=== PATIENT | female | born 1990 | race Two or more races ===

== ENCOUNTER 2024-09-11 14:15 | Inpatient (IN) | payer OTHER ==
[~2024-09-11] VITALS: Ht 162.6 cm; Wt 66.7 kg
[2024-09-13 16:30] VITALS: BP 114/62
[2024-09-13] MEDS ORDERED: RINGERS SOLUTION,LACTATED 1,000 ML IV SCH (18:00)
[2024-09-13 18:21] LABS: HEMATOCRIT 38.2 % (36.0-45.00); HEMOGLOBIN 12.9 g/dL (12.0-15.00); MEAN CELL VOLUME 93.6 fL (80.00-100.00); MEAN CORPUSCULAR HEMOGLOBIN 31.6 pg (27.00-32.0); MEAN CORPUSCULAR HGB CONC 33.8 g/dl (32.0-36.0); PLATELET COUNT 195 K/uL (150-450); RED BLOOD COUNT 4.08 M/uL (4.00-6.00); RED CELL DISTRIBUTION WIDTH 13.7 % (11.5-14.5)
[2024-09-13 18:41] LABS: INR < 0.93; PARTIAL THROMBOPLASTIN TIME 28.2 SECONDS (22.0-34.0); PROTHROMBIN TIME 9.9 SECONDS (9.0-11.5)
[2024-09-13 18:45] LABS: ALBUMIN 3.1 gm/dL (3.4-5.0); BILIRUBIN TOTAL 0.49 mg/dL (0.3-1.2); CALCIUM 9.2 mg/dL (8.5-10.1); CREATININE SERUM 0.63 mg/dL (0.55-1.02); GFR 106.92; GLOBULINA 3.5 G/DL (2.4-3.5); POTASSIUM 4.14 mEq/L (3.5-5.1); TOTAL PROTEIN 6.6 gm/dL (6.4-8.2)
[2024-09-13] MEDS ORDERED: ERYTHROMYCIN BASE OPHT 1GM EACH TUBE OP ONE (19:42)
[2024-09-13] MEDS ORDERED: CHLORHEXIDINE GLUCONATE 120 ML BOTTLE TOP ONE (19:42)
[2024-09-13] MEDS ORDERED: OXYTOCIN 20 UNITS/1000ML RL PIGGYBAG IV ONE (19:42)
[2024-09-13] MEDS ORDERED: LIDOCAINE HCL 1% 10ML VIAL ONE (19:43)
[2024-09-13 23:20] VITALS: BP 128/69
[2024-09-13] MEDS ORDERED: KETOROLAC TROMETHAMINE 30 MG VIAL IV ONE (23:45)
[2024-09-13] MEDS ORDERED: IBUprofen 400 MG TABLET PO PRN (23:45)
[2024-09-13] MEDS ORDERED: OXYTOCIN 1,000 ML IV SCH (23:45)
[2024-09-13] MEDS ORDERED: CHLORHEXIDINE GLUCONATE 120 ML BOTTLE TP SCH (23:45)
[2024-09-14] VITALS (7 sets, daily range): BP systolic 92–121; BP diastolic 56–76; O2SAT 100
[2024-09-14 12:36] LABS: HEMATOCRIT 27.1 % (36.0-45.00); HEMOGLOBIN 9.3 g/dL (12.0-15.00); MEAN CELL VOLUME 93.7 fL (80.00-100.00); MEAN CORPUSCULAR HEMOGLOBIN 32.1 pg (27.00-32.0); MEAN CORPUSCULAR HGB CONC 34.3 g/dl (32.0-36.0); PLATELET COUNT 175 K/uL (150-450); RED BLOOD COUNT 2.89 M/uL (4.00-6.00); RED CELL DISTRIBUTION WIDTH 13.8 % (11.5-14.5)
[2024-09-14] MEDS ORDERED: IRON FUM,PS/FOLIC/BCOMP,C NO.9 1 CAP CAPSULE PO SCH (17:00)
[2024-09-15 00:10] VITALS: BP 87/61
[2024-09-15 04:00] VITALS: BP 89/60
[2024-09-15 08:00] VITALS: BP 87/50
== END 2024-09-15 12:59 | disposition home or self-care (01) | DRG 807 ==
LOC: OB/GYN 09-13 14:15 → LDR 09-13 17:05 → OB/GYN 09-14 02:27
PROVIDERS: Obstetrics & Gynecology; ADMIT Obstetrics & Gynecology; ATTEND Obstetrics & Gynecology
PROC: 10E0XZZ Delivery of Products of Conception, External Approach (ICD-10-PCS; principal; 2024-09-13)
PROC: 0KQM0ZZ Repair Perineum Muscle, Open Approach (ICD-10-PCS; 2024-09-13)
PROC: 4A1HXCZ Monitoring of Products of Conception, Cardiac Rate, External Approach (ICD-10-PCS; 2024-09-13)
DX: O70.1 Second degree perineal laceration during delivery (principal); Z37.0 Single live birth; Z3A.40 40 weeks gestation of pregnancy